=== PATIENT | female | born 1950 | race African-American/Black ===

== ENCOUNTER 2021-08-31 13:47 | Outpatient (CLI) | payer MEDICARE, MEDICAID | END 2021-08-31 13:48 | disposition home or self-care (01) | LOC: CSHMAMMO 13:47 | PROVIDERS: ATTEND Student in an Organized Health Care Education/Training Program | DX: Z12.31 Encounter for screening mammogram for malignant neoplasm of breast (principal) | CPT/HCPCS: 77063; 77067 ==